=== PATIENT | female | born 1980 | race African-American/Black ===

== ENCOUNTER 2024-08-29 12:00 | Outpatient (CLI) | payer OTHER, SELFPAY ==
[2024-08-29 12:40] LABS: Hemoglobin 10.5 g/dL (12.0-15.0); Mean Corpuscular HGB Conc 31.8 g/dl (32-36); Mean Corpuscular Hemoglobin 26.3 pg (26-34); Mean Corpuscular Volume 82.5 fl (80-100); Mean Platelet Volume 12.3 fl (7.4-10.4); Platelet Count Result 233 k/mm3 (150-375); Red Cell Distribution Width 17.2 % (11.5-14.5); White Blood Count 4.4 K/mm3 (4.5-10.0)
[2024-08-29 13:00] LABS: Iron 63 ug/dL (37-170)
[2024-08-29 13:36] LABS: Ferritin 5.87 ng/mL (6.24-137)
--- OUTSIDE RECORDS SUMMARY | 2024-08-29 13:37 | XMS_ITS | Clinical Summary ---
Author Organization [facility] Address [address] [place] [address] Care Team Providers Care Compound Filler Name Role Phone Unavailable Primary Care Provider Unavailabl e Source Comments [facility],non-owned Affiliates and Associated Physician Practices is amultiple site organization consisting of ambulatory clinics and hospital sitesin [place], [place], [place] and [place]. This disclosure is being madepursuant to the Care Everywhere program and may not contain all information available regarding this patient. Last updated 18.[facility] [employer] Allergies No known active allergies Immunizations Name Administration Dates Next Due INFLUENZA VACCINE, QUADR. (F LUZONE; FLULAVAL; FLUARIX; AFLURIA QUADRIVALENT; 6MO+), 0.5 ML (IIV4) 05/05/2020 Social History Tobacco Use Types Packs/Day Years Used Date Smoking Tobacco: Never Assessed Sex and Gender Information Value Date Recorded Sex Assigned at Not on file Gender Identity Not on file Sexual Orientation Not on file Plan of Treatment Health Maintenance Due Date Last Done Comments COLOGUARD (AGES 45-75) - COL ON CA SCREENING 1978 COLON MONITORING 1978 COLONOSCOPY - COLON CA SCREENING 1978 CT COLONOGRAPHY - COLON CA SCREENING 1978 Colorectal Cancer Screening 1978 FIT - COLON CA SCREENING 1978 FLEX SIG - COLON CA SCREENING 1978 LIPID TESTING 1978 MAMMOGRAM 1978 PAP SMEAR 1978 HIV SCREENING 1993 HEPATITIS C SCREENING 07/17/1996 DTAP/TDAP/TD VACCINES (1 - Tdap) 1997 HEPATITIS B VACCINE (1 of 3 - 19+ 3-dose series) 1997 COVID-19 VACCINE (2023-2 5 season) 2024 INFLUENZA VACCINE (#1) 2024 05/05/2020 DEPRESSION SCREENING 06/13/2024 ZOSTER VACCINE (1 of 2) 2028 HIB VACCINE Aged Out No longer eligi ble based on patient's age to complete this topic HPV VACCINE Aged Out No longer eligi ble based on patient's age to complete this topic MENINGOCOCCAL (Group B) VACC INE SHARED DECISION-MAKING Aged Out No longer eligibl e based on patient's age to complete this topic MENINGOCOCCAL GROUPS A/C/Y/W VACCINE Aged Out No longer eligible b ased on patient's age to complete this topic PNEUMOCOCCAL VACCINE Aged Out No long er eligible based on patient's age to complete this topic
--- OUTSIDE RECORDS SUMMARY | 2024-08-29 13:37 | XMS_ITS | Referral Summary ---
Author Organization [facility] Address [address] [place] [phone] Care Team Providers Care Mailing Machine Helper Name Role Phone Michela Pichardo MD Primary Care Provider [phone] Etienne Calixto MD Unavailable [phone] Encounters Date Type Department Care Team Description 07/04/2024 2:30 PM ORACLE DBA Ancillary Procedure [facility] Obstetrics and Gynecology [address] [place] [phone] Hypertrophy of uterus; Polyp of cervix; Postcoital and contact bleeding 06/08/2024 Orders Only [facility] Health Information Management [address] [place] [address] Scanning, Provider from Last 3 Months Allergies No known active allergies Medications multivitamin-Ca -iron-minerals tablet Take by mouth Active cholecalciferol (VITAMIN D-3) 5,000 unit capsule Take 1 capsule (5,000 Units total) by mouth daily Active ELDERBERRY FRUIT ORAL Take by mouth Activ e amLODIPine (NORVASC) 2.5 mg tabletIndicatio ns:hypertension Take 1 tablet (2.5 mg total) by mouth daily 30 tablet 2 3 Active benzonatate (TESSALON) 200 mg capsuleIndicati ons:Acute cough Take 1 capsule (200 mg total) by mouth 3 (three) times a day as needed for cough keep tessalon out of reach of children, especially children under the age of 10, due to possible serious risk such as if ingested by children under the age of 10. 30 capsule 3 Active Active Problems Problem Noted Date Diagnosed Date Encounter for medical examination to establish c are 11/16/2022 Assessment & Plan (11/16/2022 1:38 PM CDT): A(n) initial well visit to establish care has been performed today. Manju Cheng is not up to date on screening tests. She is in need of Breast cancer screening and Cholesterol screening. She is not up to date on needed preventative vaccinations; She is in need of Tdap/Td. We discussed healthy lifestyle habits, educational material has been given. Medications reviewed, changes documented as per the medical record and discussed with patient along with risks vs benefits. BP elevated; recheck similar. Discussed DASH plan, will consider Rx (low dose) tdap today Labs pending Return in 1 month Immunizations Immunization Administration Dates Next Due Influenza, Quadrivalent, Spl it, Preservative Free, Intramuscular 05/08/2022,05/05/2020 Influenza, Unspecified 06/13/2022(Deferr ed: Patient Refused),06/13/2021(Deferred: Patient Refused) Pfizer SARS-CoV-2 Monovalent Vaccination (12+ Yrs) PURPLE 02/07/2021,01/13/2021 Tdap 11/16/2022 Social History Tobacco Use Types Packs/Day Years Used Date Smoking Tobacco: Never Smokeless Tobacco: Never Tobacco Cessation:Counseling Given: Not Answered AUDIT-C Answer Date Recorded Q1: How often do you have a drink containing alc ohol? 2-3 times a week 11/16/2022 Q2: How many drinks containi ng alcohol do you have on a typical day when you are drinking? 1 or 2 11/16/2022 Q3: How often do you have si x or more drinks on one occasion? 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 Not on file Not on file Not on file Last Filed Vital Signs Vital Sign Reading Time Taken Comments Blood Pressure 144/96 05/31/2023 5:45 PM ORACLE DBA Pulse 100 05/31/2023 5:45 PM ORACLE DBA Temperature 37.2 C (99 F) 05/31/2023 5:45 PM ORACLE DBA Respiratory Rate 16 05/31/2023 5:45 PM ORACLE DBA Oxygen Saturation 99% 05/31/2023 5:45 PM ORACLE DBA Inhaled Oxygen Concentration - - Weight 90.6 kg (199 lb 11.2 oz) 05/31/2023 5:45 PM ORACLE DBA Height 167.6 cm (5' 6 ) 05/31/2023 5:45 PM ORACLE DBA Body Mass Index 32.23 05/31/2023 5:45 PM ORACLE DBA Plan of Treatment Not on file Procedures Procedure Name Priority Date/Time Associated Diagnosis Comments US PELVIS COMPLETE Schedule Routine, Read Routine (OP Routine) 07/04/2024 2:37 PM ORACLE DBA Hypertrophy of uterus Polyp of cervix Postcoital and contact bleeding SCAN - OTHER ORDERS 06/08/2024 from Last 3 Months Results * US Pelvis Complete (07/04/2024 2:37 PM ORACLE DBA) Cul de Sac No free fluid visualized VIEWPOINT Endometrial Thickness 7.6 mm&millim eters VIEWPOINT Anatomical Region Laterality Modality Pelvis N/A Ultrasound 07/04/2024 2:38 PM ORACLE DBA Impressions 07/04/2024 3:20 PM ORACLE DBA 1- Enlarged myomatous uterus 2- Normal appearing ovaries 3- No adnexal masses are identified. Narrative Procedure Note Cory Bueno MD - 07/04/2024 IMPRESSION: 1- Enlarged myomatous uterus 2- Normal appearing ovaries 3- No adnexal masses are identified. us Chica Bee MANAGEMENT SUPERVISOR IMG US PROCEDURES Final Result * SCAN - OTHER ORDERS (06/08/2024) us Provider Scanning Final Result from Last 3 Months Insurance [employer] [employer] [employer] Address: [facility] [id number] [place] [address] [employer] [employer] Address: [facility] [id number] [place] [address] [facility] [employer] [facility] [employer] Address: [facility] [id number] [place] [address] Care Teams Mailing Machine Helper Relationship Specialty Start Date End Date Micheal Pichardo MD [address] [facility] [address] [place] [address] PCP - General Family Medicine 11/16/22 Etienne Calixto MD [address] [facility] [address] [place] [address] Referring Physician Obstetrics and Gynecology 11/16/22
--- OUTSIDE RECORDS SUMMARY | 2024-08-29 13:37 | XMS_ITS | Clinical Summary ---
Author Organization [address] Address [address] [place] [phone] Care Team Providers Care Brass Wind Instruments Tube Bender Name Role Phone Micheal Pichardo MD Primary Care Provider [phone] Etienne Calixto MD Unavailable [phone] Allergies No known active allergies Medications multivitamin-Ca [...] establish care has been performed today. Manju Paez Prosper is not up to date on screening [...] today Labs pending Return in 1 month Encounters Date Type Department Care Team Description 07/04/2024 2:30 PM SR. PAYROLL MANAGER Ancillary Procedure [facility] Obstetrics and Gynecology [address] [facility] [address] [place] [phone] Hypertrophy of uterus; Polyp of cervix; Postcoital and contact bleeding 06/08/2024 Orders Only [facility] Health Information Management [address] [place] [address] Scanning, Provider from Last 3 Months Immunizations Immunization Administration Dates Next Due Influenza, Quadrivalent, Spl it, Preservative Free, Intramuscular 05/08/2022,05/05/2020 Influenza, Unspecified 06/13/2022(Deferr ed: Patient Refused),06/13/2021(Deferred: Patient Refused) Pfizer SARS-CoV-2 Monovalent Vaccination (12+ Yrs) PURPLE 02/07/2021,01/13/2021 Tdap 11/16/2022 Family History Medical History Relation Name Comments Cerebral aneurysm Father Depression Father No Known Problems Maternal Grandfather Hypertension Maternal Grandmother Hypothyroidism Maternal Grandmother Fibroids Mother Tuberculosis Paternal Grandfather No Known Problems Paternal Grandmother Relation Name Status Comments Father Maternal Grandfather Maternal Grandmother Mother Alive Paternal Grandfather Paternal Grandmother Social History Tobacco Use Types Packs/Day Years [...] on file Legal Sex Female 7:24 PM SR. 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 PAYROLL MANAGER Pulse 100 05/31/2023 5:45 PM SR. PAYROLL MANAGER Temperature 37.2 C (99 F) 05/31/2023 5:45 PM SR. PAYROLL MANAGER Respiratory Rate 16 05/31/2023 5:45 PM SR. PAYROLL MANAGER Oxygen Saturation 99% 05/31/2023 5:45 PM SR. PAYROLL MANAGER Inhaled Oxygen Concentration - - Weight 90.6 kg (199 lb 11.2 oz) 05/31/2023 5:45 PM SR. PAYROLL MANAGER Height 167.6 cm (5' 6 ) 05/31/2023 5:45 PM SR. PAYROLL MANAGER Body Mass Index 32.23 05/31/2023 5:45 PM SR. PAYROLL MANAGER Plan of Treatment Health Maintenance Due Date Last Done Comments Breast Cancer Screening-Mammogram 1978 Cervical Cancer Screening 1978 Colon Cancer Screening-Colonoscopy 1978 Hepatitis C Screening 1978 Hepatitis B Screening 1996 Depression Screening 11/17/2023 11/16/2022 Regular Well Visit/Exam 18-64 11/17/2023 11/16/2022 Covid-19 Vaccine (3 - 2023-2 5 season) 2024 02/07/2021, 01/13/2021 Influenza Vaccine (#1) 2024 2, 05/05/2020 DTaP/Tdap/Td Vaccine (2 - Td or Tdap) 11/16/2032 11/16/2022 HPV Vaccines Aged Out No longer eligi ble based on patient's age to complete this topic Pneumococcal vaccine <65 Aged Out No longer eligible based on patient's age to complete this topic Procedures Procedure Name Priority Date/Time Associated Diagnosis Comments US PELVIS COMPLETE Schedule Routine, Read Routine (OP Routine) 07/04/2024 2:37 PM SR. PAYROLL MANAGER Hypertrophy of uterus Polyp of cervix Postcoital and contact bleeding SCAN - OTHER ORDERS 06/08/2024 from Last 3 Months Results * US Pelvis Complete (07/04/2024 2:37 PM SR. PAYROLL MANAGER) Cul de Sac No free fluid visualized VIEWPOINT Endometrial Thickness 7.6 mm&millim eters VIEWPOINT Anatomical Region Laterality Modality Pelvis N/A Ultrasound 07/04/2024 2:38 PM SR. PAYROLL MANAGER Impressions 07/04/2024 3:20 PM SR. PAYROLL MANAGER 1- Enlarged myomatous uterus 2- Normal appearing ovaries 3- No adnexal masses are identified. Narrative Procedure Note Cory Bueno MD - 07/04/2024 IMPRESSION: 1- Enlarged myomatous uterus 2- Normal appearing ovaries 3- No adnexal masses are identified. us Chica Bee NP IMG US PROCEDURES Final Result * SCAN - OTHER ORDERS (06/08/2024) us Provider Scanning Final Result from Last 3 Months Insurance [facility] [employer] Address: [facility] [id number] [place] [address] [employer] Address: [facility] [id number] [place] [phone] [employer] Address: [facility] [id number] [place] [phone] Care Teams Brass Wind Instruments Tube Bender Relationship Specialty Start Date End Date Micheal Pichardo MD [address] [facility] [address] [place] [address] PCP - General Family Medicine 11/16/22 Etienne Calixto MD [address] [facility] [address] [facility] [address] [place] [address] Referring Physician Obstetrics and Gynecology 11/16/22
== END 2024-08-29 12:01 | disposition home or self-care (01) ==
PROVIDERS: PCP Family Medicine; Visit Provider Obstetrics & Gynecology
DX: N92.0 Excessive and frequent menstruation with regular cycle (principal); D64.9 Anemia, unspecified
CPT/HCPCS: 36415; 82728; 83540; 85027